=== PATIENT | female | born 1975 | race Two or more races ===

== ENCOUNTER 2020-05-23 07:15 | Inpatient (IN) | payer OTHER ==
[~2020-05-23] VITALS: Ht 167.6 cm; Wt 88.0 kg
[2020-05-23] MEDS ORDERED: SYNTHROID150 MCG PO (08:53)
[2020-05-23] MEDS ORDERED: FORTAMET500 MG PO (08:54)
[2020-06-01] MEDS ORDERED: IBUPROFEN800 MG PO (06:55)
[2020-06-01] MEDS ORDERED: NEURONTIN600 MG PO (06:55)
[2020-06-01] MEDS ORDERED: POLY119PG PO (06:56)
[2020-06-01] MEDS ORDERED: SIMETHICONE125 M1 PO (06:56)
== END 2020-06-01 10:51 | disposition home or self-care (01) | DRG 743 ==
LOC: OB/GYN 05-30 05:20 → O/R 05-30 05:20 → SURH 05-30 07:15 → OB/GYN 05-30 11:53
PROVIDERS: ADMIT Obstetrics & Gynecology; ATTEND Obstetrics & Gynecology
PROC: 0UB70ZZ Excision of Bilateral Fallopian Tubes, Open Approach (ICD-10-PCS; 2020-05-30)
PROC: 0UT90ZZ Resection of Uterus, Open Approach (ICD-10-PCS; principal; 2020-05-30 11:15)
DX: D25.1 Intramural leiomyoma of uterus (principal); D25.2 Subserosal leiomyoma of uterus; N84.0 Polyp of corpus uteri; N83.8 Other noninflammatory disorders of ovary, fallopian tube and broad ligament; E11.8 Type 2 diabetes mellitus with unspecified complications